=== PATIENT | male | born 1980 | race American Indian/Alaskan Native ===

== ENCOUNTER 2018-02-09 15:20 | Emergency (ER) | payer BC ==
[2018-02-09 17:37] LABS: Basophils # (Auto) 0.1 K/mm3 (0.0-0.1); Basophils % (Auto) 1.3 % (0.0-1.8); Eosinophils # (Auto) 0.2 K/mm3 (0.0-0.4); Eosinophils % (Auto) 1.7 % (0.0-4.3); Hemoglobin 14.9 gm/dl (11.8-15.2); Lymphocytes # (Auto) 2.3 K/mm3 (1.2-5.4); Lymphocytes % (Auto) 22.3 % (13.4-35.0); Mean Corpuscular HGB Conc 35 % (32-34); Mean Corpuscular Hemoglobin 32 pg (28-32); Mean Corpuscular Volume 92 fl (84-94); Monocytes # (Auto) 0.5 K/mm3 (0.0-0.8); Monocytes % (Auto) 5.1 % (0.0-7.3); Red Blood Count 4.67 M/mm3 (3.65-5.03); Red Cell Distribution Width 12.8 % (13.2-15.2)
[2018-02-09 17:45] LABS: Platelet Count 172 K/mm3 (140-440)
[2018-02-09 17:51] LABS: Alanine Aminotransferase 20 units/L (7-56); Albumin 4.4 g/dL (3.9-5); BUN/Creatinine Ratio 10; Blood Urea Nitrogen 13 mg/dL (9-20); Calcium 9.8 mg/dL (8.4-10.2); Hemolysis Index 56
--- NOTE | 2018-02-09 17:56 | Emergency Department Report ---
Chief Complaint: Abdominal Pain Stated Complaint: STOMACH PAIN AFTER EATING - HPI History of Present Illness: 37-year-old male presents to the emergency department with complaint of upper abdominal pain has been going on for the past week. The pain seems to worsen after eating but is there throughout the day. It is more of a dull pain. He denies any fever, nausea, vomiting, diarrhea or constipation. He has a past medical history of HIV and is compliant with his HIV medications. He does not follow-up with any primary care physician or infectious disease physician at this time. No recent travel or sick contacts at home. - ROS Review of Systems: Positive for abdominal pain Negative for fever, nausea, vomiting, diarrhea or constipation - Exam Vital Signs: Vital Signs 02/09/18 15:40 Temperature 98.2 F Pulse Rate 88 Respiratory 18 Rate Blood Pressure 116/74 O2 Sat by Pulse 94 Oximetry Physical Exam: Normal bowel sounds. He does have some reproducible epigastric tenderness to palpation. No guarding. Soft nontoxic appearing abdomen. MSE screening note: Focused history and physical exam performed. Due to findings the following was ordered: The CBC and CMP are unremarkable. I've added a lipase. The patient will have an upper abdominal ultrasound. ED Medical Decision Making - Lab Data Result diagrams: 02/09/18 16:56 02/09/18 16:56 ED Disposition for MSE Condition: Stable Referrals: PRIMARY CARE [Primary Care Provider] - 3-5 Days
[2018-02-09 18:00] LABS: Bilirubin,Urine NEG (Negative); Blood,Urine NEG (Negative); Color,Urine Blue (Yellow); Mucus,Urine FEW /HPF; Protein,Urine <15 mg/dL mg/dL (Negative); RBC,Urine < 1.0 /HPF (0.0-6.0); Urobilinogen,Urine < 2.0 mg/dL (<2.0)
--- NOTE | 2018-02-09 19:18 | Ultrasound Report ---
FINAL REPORT EXAM: US ABDOMEN COMPLETE HISTORY: Upper abd pain TECHNIQUE: Longitudinal and transverse grayscale sonographic images were performed Comparison: None FINDINGS: Liver demonstrates normal echogenicity and echotexture without focal intrahepatic lesion. Imaged aorta and inferior vena cava are within normal limits. Gallbladder is anechoic. No gallbladder wall thickening or pericholecystic fluid. Common duct measures 3.7 millimeters. Gallbladder wall measures 2.2 millimeters. Right kidney measures 10.3 centimeters. Left kidney measures 8.4 centimeters. Renal cortical thickness is normal. Renal cortices are mildly echogenic bilaterally with loss of corticomedullary differentiation. Spleen size is normal. The pancreas where visualized is unremarkable segmentally. IMPRESSION: Slightly echogenic kidneys bilaterally. Otherwise, unremarkable abdominal ultrasound.
--- NOTE | 2018-02-09 19:25 | Emergency Department Report ---
ED Abdominal Pain HPI - General Chief Complaint: Abdominal Pain Stated Complaint: STOMACH PAIN AFTER EATING Time Seen by Provider: 02/09/18 19:19 Source: patient, RN notes reviewed Mode of arrival: Ambulatory Limitations: No Limitations - History of Present Illness Initial Comments: 37-year-old -[place] male with a past medical history of HIV is compliant on medication comes in complaining of abdominal pain in the middle of the stomach since last Sunday. Patient states that he gets worse after eating foods. Patient denies any nausea vomiting diarrhea or any painful urination. MD Complaint: abdominal pain -: week(s) (1) Location: epigastric Severity scale (0 -10): 6 Quality: fullness, sharp Consistency: intermittent Worsens With: eating Associated Symptoms: denies other symptoms - Related Data Home Medications Medication Instructions Recorded Confirmed Last Taken Elvitegr/Cobicist/Emtric/Tenof 1 each PO QDAY 10/31/15 10/31/15 Unknown [Stribild (Nf)] Previous Rx's Medication Instructions Recorded Last Taken Type HYDROcodone/APAP 7.5-325 [[place] 1 each PO Q8HR PRN #12 tablet 10/31/15 Unknown Rx 7.5/325] Ondansetron [Zofran TAB] 4 mg PO Q8HR PRN #15 tablet 10/31/15 Unknown Rx Ranitidine HCl [Zantac 150 MG TAB] 150 mg PO BID #30 tablet 02/09/18 Unknown Rx Allergies Allergy/AdvReac Type Severity Reaction Status Date / Time doxycycline Allergy Unknown Verified 02/09/18 15:40 ED Review of Systems ROS: Stated complaint: STOMACH PAIN AFTER EATING Other details as noted in HPI Comment: All other systems reviewed and negative Constitutional: denies: chills, fever Eyes: denies: eye pain, eye discharge, vision change ENT: denies: ear pain, throat pain Respiratory: denies: cough, shortness of breath, wheezing Cardiovascular: denies: chest pain, palpitations Endocrine: no symptoms reported Gastrointestinal: abdominal pain (epigastric). denies: nausea, vomiting, diarrhea, constipation Genitourinary: denies: urgency, dysuria Musculoskeletal: denies: back pain, joint swelling, arthralgia Skin: denies: rash, lesions Neurological: denies: headache, weakness, paresthesias Psychiatric: denies: anxiety, depression ED Past Medical Hx - Past Medical History Previous Medical History?: Yes Hx HIV: Yes - Surgical History Past Surgical History?: No - Social History Smoking Status: Never Smoker Substance Use Type: None - Medications Home Medications: Home Medications Medication Instructions Recorded Confirmed Last Taken Type Elvitegr/Cobicist/Emtric/Tenof 1 each PO QDAY 10/31/15 10/31/15 Unknown History [Stribild (Nf)] HYDROcodone/APAP 7.5-325 [[place] 1 each PO Q8HR PRN #12 tablet 10/31/15 Unknown Rx 7.5/325] Ondansetron [Zofran TAB] 4 mg PO Q8HR PRN #15 tablet 10/31/15 Unknown Rx Ranitidine HCl [Zantac 150 MG TAB] 150 mg PO BID #30 tablet 02/09/18 Unknown Rx ED Physical Exam - General Limitations: No Limitations General appearance: alert, in no apparent distress - Head Head exam: Present: atraumatic, normocephalic - Eye Eye exam: Present: normal appearance - ENT ENT exam: Present: mucous membranes moist - Neck Neck exam: Present: normal inspection - Respiratory Respiratory exam: Present: normal lung sounds bilaterally. Absent: respiratory distress - Cardiovascular Cardiovascular Exam: Present: regular rate, normal rhythm. Absent: systolic murmur, diastolic murmur, rubs, gallop - GI/Abdominal GI/Abdominal exam: Present: soft, normal bowel sounds - Rectal Rectal exam: Present: deferred - Extremities Exam Extremities exam: Present: normal inspection - Back Exam Back exam: Present: normal inspection - Neurological Exam Neurological exam: Present: alert, oriented X3 - Psychiatric Psychiatric exam: Present: normal affect, normal mood - Skin Skin exam: Present: warm, dry, intact, normal color. Absent: rash ED Course Vital Signs 02/09/18 15:40 Temperature 98.2 F Pulse Rate 88 Respiratory 18 Rate Blood Pressure 116/74 O2 Sat by Pulse 94 Oximetry ED Medical Decision Making - Lab Data Result diagrams: 02/09/18 16:56 02/09/18 16:56 - Medical Decision Making Patient has been evaluated for this provider in fast track. Labs was ordered and within normal limits. Famotidine 20 mg ordered for patient. Discussed patient is sounds like gastric reflux. Discussed patient to try Zantac 150 mg by mouth twice a day or omeprazole 20 mg daily. Discussed patient to follow up with his primary care provider as well as a referral to gastroenterology. Critical care attestation.: If time is entered above; I have spent that time in minutes in the direct care of this critically ill patient, excluding procedure time. ED Disposition Clinical Impression: Reflux esophagitis Disposition: DC-01 TO HOME OR SELFCARE Is pt being admited?: No Does the pt Need Aspirin: No Condition: Stable Instructions: Gastroesophageal Reflux Disease (ED) Additional Instructions: Please take medication as prescribed. He can also try [id number] omeprazole 20 mg. That will be daily. I will refer you to gastroenterology follow-up with them if symptoms persist or gets worse. Prescriptions: Ranitidine HCl [Zantac 150 MG TAB] 150 mg PO BID #30 tablet Referrals: PRIMARY CARE, [Primary Care Provider] - 3-5 Days [facility] [Provider Group] - 3-5 Days Forms: Work/School Release Form(ED)
[2018-02-09] MEDS ORDERED: PEPCID PO ONE (19:35)
[2018-02-09 19:46] VITALS: BP 118/70
== END 2018-02-09 19:51 | disposition home or self-care (01) ==
LOC: ED 15:20
DX: K21.0 Gastro-esophageal reflux disease with esophagitis (principal); Z88.8 Allergy status to other drugs, medicaments and biological substances
CPT/HCPCS: 36415; 76700; 80053; 81001; 83690; 85025